=== PATIENT | female | born 1950 | race Caucasian/White ===

== ENCOUNTER 2021-11-27 17:09 | Inpatient (IN) | payer OTHER, BC ==
[~2021-11-27] VITALS: Ht 165.1 cm; Wt 61.2 kg
[2021-11-27] MEDS ORDERED: ZEGERID 40 MG1 EACH (17:45)
[2021-11-27] MEDS ORDERED: PEPCID AC20 MG (17:45)
[2021-11-27] MEDS ORDERED: NIFEDIPINE ER30 M1 (17:46)
[2021-11-27] MEDS ORDERED: ATORVASTATIN CA10 MG (17:46)
[2021-11-27] MEDS ORDERED: VASOTEC20 M1 (17:46)
[2021-11-27] MEDS ORDERED: CITRACAL (17:47)
[2021-11-27] MEDS ORDERED: ALLERGY RELIE15.8 ML (17:48)
[2021-11-29] MEDS ORDERED: OMEPRAZOLE40 MG (10:40)
[2021-11-29] MEDS ORDERED: CITRACAL SOFT1 EACH (10:41)
[2021-12-05] MEDS ORDERED: ULTRACET PO (08:01)
[2021-12-05] MEDS ORDERED: ELIQUIS2.5 MG PO (08:01)
== END 2021-12-05 13:47 | disposition home or self-care (01) | DRG 482 ==
LOC: ER 17:09 → SURH 19:44
PROVIDERS: ADMIT Orthopaedic Surgery; ATTEND Orthopaedic Surgery
PROC: 0QS606Z Reposition Right Upper Femur with Intramedullary Internal Fixation Device, Open Approach (ICD-10-PCS; principal; 2021-11-27)
PROC: BQ101ZZ Fluoroscopy of Right Hip using Low Osmolar Contrast (ICD-10-PCS; 2021-11-27)
PROC: 30233N1 Transfusion of Nonautologous Red Blood Cells into Peripheral Vein, Percutaneous Approach (ICD-10-PCS; 2021-11-28)
DX: S72.141A Displaced intertrochanteric fracture of right femur, initial encounter for closed fracture (principal); D64.9 Anemia, unspecified; I11.9 Hypertensive heart disease without heart failure; E78.5 Hyperlipidemia, unspecified; K21.9 Gastro-esophageal reflux disease without esophagitis